=== PATIENT | female | born 1950 | race Caucasian/White ===

== ENCOUNTER 2022-01-16 12:16 | Emergency (ER) | payer MEDICARE ==
[~2022-01-16 12:16] MED LIST: ARMOUR THYROID90 MG PO; CEFUROXIME500 MG PO; CELEBREX 200MG200 MG PO; COMBIVENT RESPIM4 GM INH; CYCLOBENZAPRINE5 MG PO; DECADRON6 MG PO; TESSALON PERLE100 MG PO
[2022-01-16] MEDS ORDERED: ENDOCET 5-3251 EACH PO (16:24)
[2022-01-16] MEDS ORDERED: ZOFRAN ODT 4 MG4 MG SL (17:04)
== END 2022-01-16 17:00 | disposition home or self-care (01) ==
LOC: ER1 12:16
DX: S22.049A Unspecified fracture of fourth thoracic vertebra, initial encounter for closed fracture (principal); S32.029A Unspecified fracture of second lumbar vertebra, initial encounter for closed fracture; S32.039A Unspecified fracture of third lumbar vertebra, initial encounter for closed fracture; S32.049A Unspecified fracture of fourth lumbar vertebra, initial encounter for closed fracture; W11.XXXA Fall on and from ladder, initial encounter; Y92.009 Unspecified place in unspecified non-institutional (private) residence as the place of occurrence of the external cause
CPT/HCPCS: 70450; 71045; 72125; 72128; 72131; 93005; 96365; 96375; 96376; 99284; J1170; J2270; J2405; J2550

== ENCOUNTER 2022-01-24 11:25 | Emergency (ER) | payer MEDICARE ==
[~2022-01-24 11:25] MED LIST changes: +ENDOCET 5-3251 EACH PO; +ZOFRAN ODT 4 MG4 MG SL
== END 2022-01-24 12:11 | disposition left against medical advice (07) ==
LOC: ER1 11:25
DX: Z53.21 Procedure and treatment not carried out due to patient leaving prior to being seen by health care provider (principal)